=== PATIENT | female | born 1990 | race Caucasian/White ===

== ENCOUNTER 2017-05-04 15:56 | Inpatient (IN) ==
[2017-05-04] MEDS ORDERED: DINOPROSTONE VAG GEL 10 MG SYRINGE VAG ONE ×2 (16:00→16:24)
[2017-05-04] MEDS: LACTATED RINGERS 1,000 ML IV SCH ×2 (16:33→19:12)
--- NOTE | 2017-05-04 17:06 | OB/GYN History & Physical ---
History of Present Illness Chief complaint: In for elective induction of labor due to term History of present illness: Ms. Lincoln is a 26 year old female who is a primigravida who presents to the labor department for elective induction of labor due to term . Her SHAKIR is 05/10/2017 for an estimated gestational age of 39 weeks and 1 day. The risk and benefits have been thoroughly discussed with this patient and significant other and plan of care has been discussed with Dr. Barboza, all parties are in agreement plan. The patient received her care through the [facility] and she received routine care, her course was uneventful. labs she is A positive, hepatitis B is negative, rubella is immune, HIV is nonreactive, RPR is nonreactive, GBS cultures negative. Review of systems is negative with exception of above. Home Medications Medication Instructions Recorded Confirmed Type Multivitamin () [ 1 tablet PO DAILY 03/01/17 03/01/17 History Vitamin] Allergies Allergy/AdvReac Type Severity Reaction Status Date / Time No Known Allergies Allergy Unverified 03/01/17 20:20 12 point system: reviewed and no additional remarkable complaints except as stated Medical,Surgical,& Family Hx - Medical History Medical History: noncontributory - Surgical History Surgical History: noncontributory - Family History Family History: Reports;: Family Diabetes (Maternal grandparent), Family Hypertension (Maternal grandparents) - Social History Smoking Status: Never smoker Have you smoked in the last 12 months: No Lives With:: Spouse Functional capacity: independent ambulation 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 General appearance: no acute distress - Antepartum / Post Antepartum Exam Cervix - Dilatation: 1 cm Effacement: 70% Station: -2 Rupture: Intact Presentation: Vertex Heart Rate: 130s-140s Breast: bilateral: normal Abdomen obstetrics: Present: bowel sounds normal Vagina: Present: normal moisture Uterus exam: Present: enlarged Adnexa: bilateral: normal Anus/Rectum: Present: normal perianal skin - Head Head exam: Present: normal inspection - Respiratory Respiratory exam: Present: clear to auscultation bilaterally - Cardiovascular Cardiovascular exam: Present: regular rate and rhythm - GI/Abdominal GI/Abdominal exam: Present: normal bowel sounds, soft - Extremities Exam Extremities exam: Present: normal inspection - Back Exam Back exam: Present: normal inspection - Neurological Exam Neurological exam: Present: alert, oriented X3 - Psychiatric Psychiatric exam: Present: normal affect, normal mood - Skin Skin exam: Present: normal color, warm Assessment and Plan (1) Term Status: Acute Assessment and plan: Admit IV fluids Prostin gel per protocol IV Pitocin per protocol if indicated Artificial rupture membranes when appropriate Epidural anesthesia if desired Internal monitors if indicated Anticipate Current Visit: Yes
[2017-05-04 17:28] LABS: Basophils # 0.1 10*3/uL (0.0-0.2); Basophils % 0.6 % (0.0-0.8); Eosinophils # 0.1 10*3/uL (0.0-0.87); Eosinophils % 0.5 % (0.00-10.9); Hematocrit 38.7 VOL% (35.7-47.0); Hemoglobin 13.2 GM/DL (12.0-16.0); Immature Granulocytes % 1.2 %; Immature Granulocytes Absolute 0.12 #; Lymphocytes % 19.3 % (21.3-54.2); Mean Corpuscular HGB Conc 34.1 GM/DL (32-36); Mean Corpuscular Hemoglobin 32 PG (27-34); Mean Platelet Volume 11.1 FL (9.6-12.0); Monocytes # 0.6 10*3/uL (0.11-0.8); Monocytes % 6.2 % (1.7-12.7); Neutrophils # 7.4 10*3/uL (1.4-7.4); Neutrophils % 72.2 % (38.7-73.9); Platelet Count 184 T/CUMM (130-400); Red Blood Count 4.16 MC/CUMM (3.8-5.5); Red Cell Distribution Width 12.5 % (9.3-17.3); White Blood Count 10.3 T/CUMM (4-12)
[2017-05-04 18:03] LABS: Albumin 3.1 G/DL (3.4-5.0); Bilirubin,Total 0.8 MG/DL (0.2-1.0); Calcium 8.9 MG/DL (8.5-10.1); Osmolality,Calculated 273.4 MOS/KG (273-304); Potassium 3.7 MMOL/L (3.5-5.1); Total Protein 6.1 G/DL (6.4-8.3)
[2017-05-04] MEDS ORDERED: hydrOXYzine HCL 25 MG/1 ML VIAL IM PRN (18:42)
[2017-05-04] MEDS ORDERED: ONDANSETRON 4 MG/2 ML VIAL IV ONE (18:42)
[2017-05-04] MEDS ORDERED: PROMETHAZINE 25 MG/1 ML VIAL IM ONE (18:42)
[2017-05-04] MEDS ORDERED: diphenhydrAMINE 50 MG/1 ML VIAL IV PRN ×2 (18:42)
[2017-05-04] MEDS ORDERED: ePHEDrine 50 MG/ML AMP IV PRN (18:42)
[2017-05-04] MEDS ORDERED: CITRIC ACID/SODIUM CITRATE 30 ML UDCUP PO ONE (18:42)
[2017-05-04] MEDS ORDERED: FAMOTIDINE 20 MG/2 ML VIAL IV ONE (18:42)
[2017-05-04] MEDS ORDERED: LACTATED RINGERS 1,000 ML IV SCH ×2 (19:00)
[2017-05-04] MEDS: fentaNYL 2 MCG/ROPIV 0.2% EPID 150 ML EPIDURAL SCH (19:45)
[2017-05-04 21:58] LABS: Apearance,Urine CLEAR (Clear); Bilirubin,Urine Negative (Negative); Blood, Urine Negative (Negative); Glucose,Urine (UA) Negative (Negative); Ketones,Urine 20 mg/dL (Negative); Nitrite,Urine Negative (Negative); Protein,Urine Negative; Urine Color Colorless (Yellow); Urine Specific Gravity 1.002 (1.001-1.035); Urine Urobilinogen < 2.0 EU/DL (0.2-1.0)
[2017-05-05] MEDS ORDERED: AMPICILLIN 2,000 MG VIAL ONE (01:58)
[2017-05-05] MEDS ORDERED: OXYTOCIN/LR 20 UNIT/1,000 ML BAG IV ONE ×2 (01:58→10:51)
[2017-05-05] MEDS ORDERED: SODIUM CHLORIDE 0.9% 100 ML IV ONE (01:58)
[2017-05-05] MEDS ORDERED: AMPICILLIN INJ 2,000 MG in SODIUM CHLORIDE 0.9% 100 ML IV ONE (02:12)
[2017-05-05] MEDS ORDERED: OXYTOCIN/LR 20 UNIT/1,000 ML BAG IV SCH (02:30)
[2017-05-05] MEDS ORDERED: ONDANSETRON 4 MG/2 ML VIAL ONE (02:58)
[2017-05-05] MEDS ORDERED: ONDANSETRON 4 MG/2 ML VIAL IV PRN (03:22)
[2017-05-05] MEDS: LACTATED RINGERS 1,000 ML IV SCH (05:56)
[2017-05-05] MEDS ORDERED: AMPICILLIN INJ 1,000 MG in SODIUM CHLORIDE 0.9% 100 ML IV SCH (06:00)
[2017-05-05] MEDS: fentaNYL 2 MCG/ROPIV 0.2% EPID 150 ML EPIDURAL SCH (08:27)
--- NOTE | 2017-05-05 10:49 | Event Note ---
HPI: Ms. Lincoln is a 26-year-old female who presented to the labor department for elective induction of labor due to term . The risk and benefits were thoroughly discussed the patient significant other plan of care was discussed with Dr. Barboza and all parties were in agreement plan. Stage I: The patient was admitted she received Prostin gel per protocol and was eventually started on IV Pitocin per protocol. She also received an epidural for pain control. She experienced spontaneous rupture membranes with clear fluid at 630 this morning. The patient maintained a CAT 1 tracing. Maternal vital signs are within normal limits. The patient had an uneventful course of labor. Stage II: The patient was complete and instructed to push. The patient pushed for approximately 30 minutes after which time the infant's head was delivered. The mouth and nose were suctioned on the perineum. A nuchal cord 1 was noted and reduced. The remainder of the infant was delivered at 1033 a viable female was noted. Apgars were 9 at 1 minute and 9 at 5 minutes. weight was 6 lbs. 3 oz. A cord pH was obtained and sent to the lab. The was placed on the mom's abdomen for skin to skin bonding. Stage III: A spontaneous delivery of a Horton placenta with a three-vessel cord noted. The placenta was further examined and appeared to be grossly intact. There was a knot in the cord other than that the placenta was essentially within normal limits. The vagina cervix was inspected with no tears or lacerations noted. Estimated blood loss was approximately 150 cc. At the time of dictation mother and baby are both in stable condition.
[2017-05-05] MEDS ORDERED: RHO(D) IMMUNE GLOBULIN 300 MCG SYRINGE IM ONE (10:51)
[2017-05-05] MEDS ORDERED: BENZOCAINE 20%/MENTHOL 0.5% SPRAY 56 GM CAN TOP PRN (10:51)
[2017-05-05] MEDS ORDERED: LANOLIN 50% CREAM 0.3 OZ TUBE TOP PRN (10:51)
[2017-05-05] MEDS ORDERED: DIPH/TET/ACEL PERT BOOSTER VACCINE 0.5 ML VIAL IM ONE (10:51)
[2017-05-05] MEDS ORDERED: ACETAMINOPHEN 325 MG TABLET PO PRN (10:51)
[2017-05-05] MEDS ORDERED: WITCH HAZEL PADS 100/JAR TOP PRN (10:51)
[2017-05-05] MEDS ORDERED: oxyCODONE/ACETAMINOPHEN 5-325 MG TABLET PO PRN ×2 (10:51)
[2017-05-05] MEDS ORDERED: HYDROCORTISONE 2.5% RECTAL CREAM 30 GM TUBE TOP PRN (10:51)
[2017-05-05] MEDS ORDERED: MEASLES/MUMPS/RUBELLA VACCINE 0.5 ML VIAL SUBCUT ONE (10:51)
[2017-05-05] MEDS ORDERED: BISACODYL 10 MG SUPP RECTAL PRN (10:51)
[2017-05-05] MEDS ORDERED: ACETAMINOPHEN/CODEINE 300-30 MG TABLET PO PRN (10:52)
[2017-05-05 10:59] LABS: Cord Arterial Blood HCO3 17.8 MMOL/L
[2017-05-05 11:03] LABS: Cord Venous Blood HCO3 19.9 MMOL/L; Cord Venous Blood PCO2 41.5 MMHG; Cord Venous Blood PO2 33.9
[2017-05-05] MEDS: IBUPROFEN 800 MG TABLET PO PRN ×2 (14:50→20:00)
[2017-05-05] MEDS: DOCUSATE SODIUM 100 MG CAPSULE PO SCH (21:30)
[2017-05-06 06:50] LABS: Basophils % 0.3 % (0.0-0.8); Eosinophils # 0.1 10*3/uL (0.0-0.87); Eosinophils % 0.6 % (0.00-10.9); Hematocrit 31.9 VOL% (35.7-47.0); Immature Granulocytes % 0.9 %; Lymphocytes # 1.9 10*3/uL (1.4-4.0); Lymphocytes % 17.7 % (21.3-54.2); Mean Corpuscular HGB Conc 33.9 GM/DL (32-36); Mean Corpuscular Hemoglobin 32 PG (27-34); Mean Corpuscular Volume 94.4 FL (87-102); Mean Platelet Volume 10.6 FL (9.6-12.0); Monocytes # 0.6 10*3/uL (0.11-0.8); Monocytes % 5.6 % (1.7-12.7); Neutrophils # 8.2 10*3/uL (1.4-7.4); Neutrophils % 74.9 % (38.7-73.9); Red Blood Count 3.38 MC/CUMM (3.8-5.5); Red Cell Distribution Width 12.9 % (9.3-17.3); White Blood Count 10.9 T/CUMM (4-12)
[2017-05-06 06:51] LABS: Hemoglobin 10.8 GM/DL (12.0-16.0); Platelet Count 133 T/CUMM (130-400)
--- NOTE | 2017-05-06 06:58 | Anesthesia Post-Op ---
Anesthesia Post OP - Post Ansesthetic Evaluation Patient seen in post op: Yes Resp: within normal limits CV: within normal limits Mental: within normal limits Temp: within normal limits [id number]: within normal limits Nausea and Vomiting: within normal limits Pain: within normal limits
[2017-05-06] MEDS: DOCUSATE SODIUM 100 MG CAPSULE PO SCH ×2 (09:15→21:27)
--- NOTE | 2017-05-06 15:09 | OB/GYN Progress Note ---
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 Bonding well with . Exam METABOLIC SPECIALIST - Constitutional Vitals: Vital Signs Temp Pulse Resp BP Pulse Ox 05/06/17 14:00 16 05/06/17 11:47 97.8 F 76 18 95/52 98 05/06/17 07:32 97.1 F L 61 18 92/54 99 05/06/17 06:00 18 05/06/17 04:00 97.1 F L 61 18 98/52 97 05/06/17 02:00 18 05/06/17 00:00 98.8 F 77 18 95/50 97 05/05/17 20:00 97.6 F 73 20 126/72 98 05/05/17 15:49 98.3 F 72 18 112/69 99 General appearance: no acute distress - Antepartum / Post Post Exam Breast: bilateral: normal Abdomen obstetrics: Present: bowel sounds normal Vagina: Present: normal moisture Uterus exam: Present: enlarged (FF Ml) Anus/Rectum: Present: normal perianal skin - Head Head exam: Present: normal inspection - Respiratory Respiratory exam: Present: clear to auscultation bilaterally - Cardiovascular Cardiovascular exam: Present: regular rate and rhythm - GI/Abdominal GI/Abdominal exam: Present: normal bowel sounds, soft - Extremities Exam Extremities exam: Present: normal inspection - Back Exam Back exam: Present: normal inspection - Neurological Exam Neurological exam: Present: alert, oriented X3 - Psychiatric Psychiatric exam: Present: normal affect, normal mood - Skin Skin exam: Present: normal color, warm Results - Labs CBC & BMP: 05/06/17 06:17 05/04/17 17:21
[2017-05-07 09:39] VITALS: BP 112/71
[2017-05-07] MEDS: DOCUSATE SODIUM 100 MG CAPSULE PO SCH (09:50)
--- NOTE | 2017-05-07 12:11 | Discharge Summary ---
Hospital Course - Hospital Course Hospital Course: Ms. Lincoln presented to the labor department for elective induction of labor due to term . She subsequently delivered a viable no complications. She has followed a normal course and she has done well. Her bleeding is minimal with no odor. Her vital signs are stable. Her fundus is firm and midline. Her lab values are stable. She is voiding without difficulty. She denies any complaints of pain in her legs. She is bonding well with her . She will be discharged home with prescriptions for pain and a follow-up appointment in our office. Diagnosis - Discharge Diagnosis (1) Term Status: Acute (2) Vaginal delivery Status: Acute Specialty Discharge - Follow Up or Referrals Follow up with: Jaswinder Barboza MD [Physician] - 06/18/17 10:30 am Discharge Plan - Discharge Data Disposition: Disch To Home/Self Care Condition at Discharge: Stable Discharge Diet: advance to your usual diet, regular diet Activity: resume usual activities as tolerated Hygiene: may shower Weight Bearing at Discharge: weight bear as tolerated Contact your physician if you experience:: fever over 101, pain uncontrolled by pain medications - Discharge Medications New Acetamin/Codeine 300-30 Tab [Tylenol/Codeine #3] 2 tablet PO Q4H PRN #30 tablet PRN Reason: Pain Mild (1-3) Ibuprofen Tab [Motrin Tab] 800 mg PO Q6H PRN #30 tablet PRN Reason: Pain Moderate (4-7) No Action Multivitamin () [ Vitamin] 1 tablet PO DAILY - Follow Up or Referral Follow Up: Jaswinder Barboza MD [Physician] - 06/18/17 10:30 am - Forms/Instructions Instructions: Depression (GEN), Perineal Care (DC), Vaginal Delivery (DC), Bleeding (DC) Exam - Constitutional Vitals: Period Temp Pulse Resp BP Sys/Guzmán Pulse Ox Last 24 Hr 97.1 F-98.3 F 66-75 16-20 101-117/57-79 96-99 General appearance: no acute distress - Head Head exam: Present: normocephalic - Respiratory Respiratory exam: Present: clear to auscultation bilaterally - Cardiovascular Cardiovascular exam: Present: regular rate and rhythm - GI/Abdominal GI/Abdominal exam: Present: normal bowel sounds, soft - Extremities Exam Extremities exam: Present: normal inspection - Back Exam Back exam: Present: normal inspection - Neurological Exam Neurological exam: Present: alert, oriented X3 - Psychiatric Psychiatric exam: Present: normal affect, normal mood - Skin Skin exam: Present: normal color, warm DS: Provider Date of admission: 05/04/17 15:57 Primary care physician: . No PCP Attending physician on admission: Jaswinder Barboza MD Consults: 05/04/17 17:11 Consult to Anesthesiology [CONS] Routine Consulting Provider: Reason for Anesthesiology: Epidural Consult Comment: Epidural for pain managment 05/05/17 10:51 Consult to Electronic Heat Seal Operator [CONS] Routine Consult Electronic Heat Seal Operator: Breast Feeding Discharging clinician: Evelyn Hancock CNM Expected date of discharge: 05/07/17
== END 2017-05-07 13:00 | disposition home or self-care (01) | DRG 775 ==
LOC: N.LDOUT 15:56 → N.LD 15:57 → N.OB 05-05 14:08
PROVIDERS: ADMIT Obstetrics & Gynecology; ATTEND Obstetrics & Gynecology

== ENCOUNTER 2022-06-17 05:14 | Inpatient (IN) ==
[2022-06-17] MEDS ORDERED: CARBOPROST TROMETHAMINE 250 MCG/ML AMP IM PRN (05:32)
[2022-06-17] MEDS ORDERED: CITRIC ACID/SODIUM CITRATE 30 ML UDCUP PO PRN (05:32)
[2022-06-17] MEDS ORDERED: TRANEXAMIC ACID 1,000 MG in SODIUM CHLORIDE 0.9% 100 ML IV PRN (05:32)
[2022-06-17] MEDS ORDERED: ceFAZolin 2,000 MG/50 ML DUPLEX IV PRN (05:32)
[2022-06-17] MEDS ORDERED: miSOPROStoL 200 MCG TABLET RECTAL PRN (05:32)
[2022-06-17] MEDS ORDERED: OXYTOCIN/LR 20 UNIT/1,000 ML BAG IV PRN (05:32)
[2022-06-17] MEDS ORDERED: METHYLERGONOVINE 0.2 MG/1 ML AMP IM PRN (05:32)
[2022-06-17] MEDS ORDERED: FAMOTIDINE 20 MG/2 ML VIAL IV PRN (05:32)
[2022-06-17] MEDS ORDERED: ONDANSETRON 4 MG/2 ML VIAL IV PRN ×2 (05:36→11:37)
[2022-06-17] MEDS ORDERED: PROMETHAZINE 25 MG/1 ML VIAL IM PRN (05:36)
[2022-06-17] MEDS ORDERED: diphenhydrAMINE 50 MG/1 ML VIAL IV PRN ×2 (05:36)
[2022-06-17] MEDS ORDERED: hydrOXYzine HCL 25 MG/1 ML VIAL IM PRN (05:36)
[2022-06-17] MEDS ORDERED: LACTATED RINGERS 1,000 ML IV PRN (05:36)
[2022-06-17] MEDS ORDERED: OXYTOCIN/LR 30 UNIT/1,000 ML BAG IV PRN (05:37)
[2022-06-17 05:58] LABS: Basophils # 0.1 10*3/uL (0.0-0.2); Basophils % 0.7 % (0.0-0.8); Eosinophils % 0.1 % (0.00-10.9); Hematocrit 35.6 VOL% (35.7-47.0); Hemoglobin 11.6 GM/DL (12.0-16.0); Immature Granulocytes % 1.9 %; Immature Granulocytes Absolute 0.13 #; Lymphocytes # 1.7 10*3/uL (1.4-4.0); Lymphocytes % 24.9 % (21.3-54.2); Mean Corpuscular HGB Conc 32.6 GM/DL (32-36); Mean Platelet Volume 10.8 FL (9.6-12.0); Monocytes # 0.5 10*3/uL (0.11-0.8); Monocytes % 7.6 % (1.7-12.7); Neutrophils % 64.8 % (38.7-73.9); Platelet Count 136 T/CUMM (130-400); Red Blood Count 3.49 MC/CUMM (3.8-5.5); White Blood Count 6.9 T/CUMM (4-12)
[2022-06-17] MEDS ORDERED: LACTATED RINGERS 1,000 ML IV SCH ×2 (06:00→12:00)
[2022-06-17 06:19] LABS: Albumin 2.5 G/DL (3.4-5.0); Bilirubin,Total 0.4 MG/DL (0.20-1.00); Calcium 8.8 MG/DL (8.5-10.1); Osmolality,Calculated 277.3 MOS/KG (273-304); Potassium 3.9 MMOL/L (3.5-5.1); Total Protein 5.6 G/DL (6.4-8.2)
[2022-06-17] MEDS ORDERED: ONDANSETRON 4 MG/2 ML VIAL ONE ×2 (06:44→08:29)
[2022-06-17] MEDS ORDERED: BUPIVACAINE SPINAL 0.75% 2 ML AMP SPINAL ONE (06:44)
[2022-06-17] MEDS ORDERED: buprenorphine HCL 0.3 MG/ML VIAL ONE (06:44)
[2022-06-17] MEDS ORDERED: PHENYLEPHRINE 1 MG/10 ML SYRINGE IV ONE (06:45)
[2022-06-17] MEDS ORDERED: miSOPROStoL 200 MCG TABLET ONE (07:39)
[2022-06-17] MEDS ORDERED: METHYLERGONOVINE 0.2 MG/1 ML AMP ONE (07:40)
[2022-06-17] MEDS ORDERED: CARBOPROST TROMETHAMINE 250 MCG/ML AMP IM ONE (07:40)
[2022-06-17] MEDS ORDERED: OXYTOCIN 10 UNIT/ML VIAL IM ONE (08:00)
[2022-06-17] MEDS ORDERED: ACETAMINOPHEN INJ 1,000 MG/100 ML VIAL IV ONE (08:24)
[2022-06-17] MEDS ORDERED: LACTATED RINGERS 1,000 ML IV ONE (08:24)
[2022-06-17 08:36] LABS: Cord Arterial Blood HCO3 22.3 MMOL/L
[2022-06-17 08:38] LABS: Bacteria,Urine Occasional /HPF (Few); RBC,Urine 2 /HPF (0-4); Urine Appearance Clear (Clear); Urine Color Yellow (Yellow); Urine Specific Gravity 1.015 (1.001-1.035)
[2022-06-17 08:39] LABS: Cord Venous Blood HCO3 22.8 MMOL/L; Cord Venous Blood PCO2 39.8 MMHG; Cord Venous Blood PO2 37.7
[2022-06-17 08:39] LABS: Bilirubin,Urine Negative (Negative); Blood, Urine Negative (Negative); Glucose,Urine (UA) Negative (Negative); Ketones,Urine Negative (Negative); Nitrite,Urine Negative (Negative); Protein,Urine Negative (Negative); Urine Urobilinogen 0.2 eU/dL (<2.0)
[2022-06-17 08:42] LABS: Cord Arterial Blood HCO3 22.1 MMOL/L
[2022-06-17 08:45] LABS: Cord Venous Blood HCO3 23.1 MMOL/L; Cord Venous Blood PCO2 35.4 MMHG; Cord Venous Blood PO2 39.3
[2022-06-17] MEDS ORDERED: ACETAMINOPHEN 325 MG TABLET PO PRN (11:37)
[2022-06-17] MEDS ORDERED: MAGNESIUM HYDROXIDE SUSP 30 ML UDCUP PO PRN (11:37)
[2022-06-17] MEDS ORDERED: OXYTOCIN/LR 20 UNIT/1,000 ML BAG IV ONE (12:00)
[2022-06-17] MEDS ORDERED: RHO(D) IMMUNE GLOBULIN 300 MCG SYRINGE IM ONE (12:00)
[2022-06-17] MEDS ORDERED: SODIUM CHLORIDE 0.9% 1,000 ML IV PRN (12:19)
[2022-06-17 12:25] LABS: Hematocrit 31.6 VOL% (35.7-47.0); Hemoglobin 10.3 GM/DL (12.0-16.0)
[2022-06-17] MEDS ORDERED: ACETAMINOPHEN 500 MG TABLET PO SCH (16:00)
[2022-06-17] MEDS: IBUPROFEN 800 MG TABLET PO PRN (18:23)
[2022-06-17] MEDS: DOCUSATE SODIUM 100 MG CAPSULE PO SCH (21:00)
[2022-06-17] MEDS: SERTRALINE 50 MG TABLET PO SCH (22:28)
[2022-06-17] MEDS: FOLIC ACID 1 MG TABLET PO SCH (22:28)
[2022-06-17] MEDS: sulfaSALAzine 500 MG TABLET PO SCH (22:28)
[2022-06-17] MEDS: CHOLECALCIFEROL 5,000 UNIT TABLET PO SCH (22:28)
[2022-06-17] MEDS: METOCLOPRAMIDE 10 MG TABLET PO SCH (22:47)
[2022-06-17] MEDS ORDERED: sulfaSALAzine 500 MG TABLET PO SCH (23:00)
[2022-06-18 00:18] LABS: Basophils % 0.5 % (0.0-0.8); Eosinophils % 0.1 % (0.00-10.9); Hematocrit 32.3 VOL% (35.7-47.0); Hemoglobin 10.7 GM/DL (12.0-16.0); Immature Granulocytes % 1.2 %; Lymphocytes # 1.6 10*3/uL (1.4-4.0); Lymphocytes % 19.5 % (21.3-54.2); Mean Corpuscular HGB Conc 33.1 GM/DL (32-36); Mean Corpuscular Volume 97.3 FL (87-102); Mean Platelet Volume 11.3 FL (9.6-12.0); Monocytes # 0.7 10*3/uL (0.11-0.8); Monocytes % 7.7 % (1.7-12.7); Platelet Count 101 T/CUMM (130-400); Red Blood Count 3.32 MC/CUMM (3.8-5.5); Red Cell Distribution Width 15.5 % (9.3-17.3); White Blood Count 8.4 T/CUMM (4-12)
[2022-06-18 02:04] LABS: Platelet Estimate Adequate
[2022-06-18] MEDS: IBUPROFEN 800 MG TABLET PO PRN ×3 (02:42→23:38)
[2022-06-18] MEDS: METOCLOPRAMIDE 10 MG TABLET PO SCH ×3 (04:00→21:47)
[2022-06-18 06:30] LABS: Basophils % 0.5 % (0.0-0.8); Hematocrit 33.5 VOL% (35.7-47.0); Hemoglobin 11.2 GM/DL (12.0-16.0); Immature Granulocytes % 1.1 %; Immature Granulocytes Absolute 0.09 #; Lymphocytes # 1.7 10*3/uL (1.4-4.0); Mean Corpuscular HGB Conc 33.4 GM/DL (32-36); Mean Corpuscular Volume 97.7 FL (87-102); Mean Platelet Volume 10.7 FL (9.6-12.0); Monocytes # 0.7 10*3/uL (0.11-0.8); Monocytes % 8.8 % (1.7-12.7); Neutrophils % 68.6 % (38.7-73.9); Platelet Count 108 T/CUMM (130-400); Red Blood Count 3.43 MC/CUMM (3.8-5.5); Red Cell Distribution Width 15.9 % (9.3-17.3); White Blood Count 7.9 T/CUMM (4-12)
[2022-06-18] MEDS: MULTIVITAMIN (PRENATAL) TABLET PO SCH (08:05)
[2022-06-18] MEDS: DOCUSATE SODIUM 100 MG CAPSULE PO SCH ×2 (08:05→21:46)
[2022-06-18] MEDS: SIMETHICONE CHEW 80 MG TABLET PO PRN (08:05)
[2022-06-18] MEDS: FOLIC ACID 1 MG TABLET PO SCH (15:58)
[2022-06-18] MEDS: SERTRALINE 50 MG TABLET PO SCH (15:59)
[2022-06-18] MEDS: CHOLECALCIFEROL 5,000 UNIT TABLET PO SCH (15:59)
[2022-06-18] MEDS: sulfaSALAzine 500 MG TABLET PO SCH (22:14)
[2022-06-19] MEDS: METOCLOPRAMIDE 10 MG TABLET PO SCH ×3 (05:26→22:25)
[2022-06-19] MEDS: IBUPROFEN 800 MG TABLET PO PRN ×2 (05:27→15:09)
[2022-06-19] MEDS: DOCUSATE SODIUM 100 MG CAPSULE PO SCH ×2 (08:21→22:25)
[2022-06-19] MEDS: SIMETHICONE CHEW 80 MG TABLET PO PRN (08:21)
[2022-06-19] MEDS: MULTIVITAMIN (PRENATAL) TABLET PO SCH (08:21)
[2022-06-19] MEDS: sulfaSALAzine 500 MG TABLET PO SCH (16:16)
[2022-06-19] MEDS: FOLIC ACID 1 MG TABLET PO SCH (16:16)
[2022-06-19] MEDS: CHOLECALCIFEROL 5,000 UNIT TABLET PO SCH (16:17)
[2022-06-19] MEDS ORDERED: FUROSEMIDE 40 MG/4 ML VIAL IV ONE (20:06)
[2022-06-19] MEDS ORDERED: SERTRALINE 50 MG TABLET PO SCH (21:00)
[2022-06-20] MEDS: sulfaSALAzine 500 MG TABLET PO SCH ×2 (00:51→09:16)
[2022-06-20] MEDS: IBUPROFEN 800 MG TABLET PO PRN (08:40)
[2022-06-20] MEDS: CHOLECALCIFEROL 5,000 UNIT TABLET PO SCH (09:16)
[2022-06-20] MEDS: DOCUSATE SODIUM 100 MG CAPSULE PO SCH (09:16)
[2022-06-20] MEDS: FOLIC ACID 1 MG TABLET PO SCH (09:16)
[2022-06-20] MEDS: METOCLOPRAMIDE 10 MG TABLET PO SCH ×2 (09:16→12:45)
[2022-06-20] MEDS: MULTIVITAMIN (PRENATAL) TABLET PO SCH (09:16)
[2022-06-20] MEDS ORDERED: FUROSEMIDE 20 MG TABLET PO ONE (10:33)
[2022-06-20 16:08] VITALS: BP 129/75
== END 2022-06-20 16:10 | disposition home or self-care (01) | DRG 786 ==
LOC: N.OBOUT 05:14 → N.LD 05:19 → N.OB 13:17
PROVIDERS: ADMIT Obstetrics & Gynecology; ATTEND Obstetrics & Gynecology
PROC: LDCSECT (ICD-10-PCS; 2022-06-17 07:00)